=== PATIENT | male | born 1935 | race Caucasian/White ===

== ENCOUNTER 2022-05-03 17:25 | Inpatient (IN) ==
[2022-05-03 19:57] LABS: Hematocrit 30 % (42-52); Hemoglobin 10.4 g/dL (14.0-18.0); Mean Corpuscular HGB Conc 35 g/dL (31-36); Mean Corpuscular Hemoglobin 31 pg (27-31); Mean Corpuscular Volume 89 fL (80-94); Mean Platelet Volume 9.4 fL (7.4-10.4); Platelet Count 171 10^3/uL (150-450); Red Blood Count 3.35 10^6 /uL (4.18-5.48); Red Cell Distribution Width 19 % (10-15); White Blood Count 16.6 10^3/uL (3.5-10.8)
[2022-05-03 20:05] LABS: ABS Basophils 0.1 10^3/ul (0-0.2); ABS Lymphocytes 2.4 10^3/ul (1.0-4.8); ABS Monocytes 2.4 10^3/ul (0-0.8); ABS Neutrophils 11.7 10^3/ul (1.5-7.7); Eosinophil % 0.2 %; Lymphocyte % 14.3 %
[2022-05-03 20:34] LABS: Albumin 3.6 g/dL (3.2-5.2); Calcium 9.1 mg/dL (8.6-10.3); Potassium 4.2 mmol/L (3.5-5.0); Total Bilirubin 1.2 mg/dL (0.2-1.0)
[2022-05-03 20:41] LABS: Albumin/Globulin Ratio 1.4 (1-3); C Reactive Protein 53.05 mg/L (<8.01); Globulin 2.5 g/dL (2-4); Total Protein 6.1 g/dL (6.4-8.9); eGFR CKD-EPI 84.6 (>60)
[2022-05-03] MEDS ORDERED: Vancomycin 1,500 MG in NS 0.9% 250 ml 250 ML IVPB ONE (20:44)
[2022-05-03] MEDS ORDERED: Piperacillin/Tazobac ADVAN 3.375 GM in NS 0.9% 100 ml BAG 100 ML IV ONE (20:45)
[2022-05-03] MEDS ORDERED: Morphine 4 MG/ML VIAL (1 ml) IV ONE (20:52)
[2022-05-03] MEDS ORDERED: Polyethylene Glycol 3350 17 GM PACKET PO PRN (21:53)
[2022-05-03] MEDS ORDERED: Enoxaparin 40 MG/0.4 ML SYR SUBCUT SCH (23:00)
[2022-05-03] MEDS ORDERED: Vancomycin per Pharmacy 1 EA NOTE FOLLOW UP SCH (23:00)
[2022-05-04] MEDS: Enoxaparin 40 MG/0.4 ML SYR SUBCUT SCH ×2 (02:09→23:27)
[2022-05-04] MEDS: Ondansetron 4 mg VIAL 2 MG/ML 2 ml VIAL IV PRN (02:47)
[2022-05-04] MEDS ORDERED: Cefepime 1 GM in Dextrose 1 GM/50 ML BAG IV SCH (04:00)
[2022-05-04] MEDS: Cefepime 2 GM in Dextrose 2 GM/50 ML BAG IV SCH ×2 (05:38→17:16)
[2022-05-04 06:06] LABS: Hematocrit 27 % (42-52); Mean Corpuscular HGB Conc 34 g/dL (31-36); Mean Corpuscular Hemoglobin 30 pg (27-31); Mean Corpuscular Volume 89 fL (80-94); Mean Platelet Volume 9.4 fL (7.4-10.4); Platelet Count 146 10^3/uL (150-450); Red Cell Distribution Width 19 % (10-15); White Blood Count 15.5 10^3/uL (3.5-10.8)
[2022-05-04 06:18] LABS: ABS Basophils 0.1 10^3/ul (0-0.2); ABS Lymphocytes 1.6 10^3/ul (1.0-4.8); ABS Monocytes 2.3 10^3/ul (0-0.8); ABS Neutrophils 11.5 10^3/ul (1.5-7.7); Eosinophil % 0.2 %; Lymphocyte % 10.6 %
[2022-05-04 06:24] LABS: Albumin 3.2 g/dL (3.2-5.2); Albumin/Globulin Ratio 1.3 (1-3); C Reactive Protein 64.46 mg/L (<8.01); Calcium 8.5 mg/dL (8.6-10.3); Globulin 2.4 g/dL (2-4); Magnesium 1.8 mg/dL (1.9-2.7); Potassium 4.1 mmol/L (3.5-5.0); Total Bilirubin 1.3 mg/dL (0.2-1.0); Total Protein 5.6 g/dL (6.4-8.9); eGFR CKD-EPI 84.6 (>60)
[2022-05-04] MEDS: Aspirin EC 81 mg TAB.EC (enteric coated) PO SCH (08:05)
[2022-05-04] MEDS ORDERED: Magnesium Sulfate 2 gm BAG 2 GM/50 ML BAG IVPB ONE (08:22)
[2022-05-04] MEDS ORDERED: Vancomycin 1000 MG in NS 0.9% 250 ML IVPB SCH (10:30)
[2022-05-04] MEDS ORDERED: Gadoteridol (CONTRAST) 279.3 MG/ML 10 ML IV ONE (15:45)
[2022-05-05] MEDS ORDERED: Acetaminophen IV 1 GM/100ML 1,000 MG/100 ML BAG IV ONE (03:15)
[2022-05-05] MEDS: Cefepime 2 GM in Dextrose 2 GM/50 ML BAG IV SCH ×2 (05:07→15:50)
[2022-05-05 07:28] LABS: Hematocrit 26 % (42-52); Mean Corpuscular HGB Conc 35 g/dL (31-36); Mean Corpuscular Hemoglobin 31 pg (27-31); Mean Corpuscular Volume 88 fL (80-94); Mean Platelet Volume 9.3 fL (7.4-10.4); Platelet Count 151 10^3/uL (150-450); Red Blood Count 2.93 10^6 /uL (4.18-5.48); Red Cell Distribution Width 18 % (10-15); White Blood Count 11.3 10^3/uL (3.5-10.8)
[2022-05-05 07:32] LABS: ABS Basophils 0.1 10^3/ul (0-0.2); ABS Lymphocytes 1.3 10^3/ul (1.0-4.8); ABS Monocytes 1.7 10^3/ul (0-0.8); ABS Neutrophils 8.2 10^3/ul (1.5-7.7); Eosinophil % 0.3 %; Lymphocyte % 11.5 %
[2022-05-05 07:47] LABS: Calcium 8.5 mg/dL (8.6-10.3); Potassium 4.1 mmol/L (3.5-5.0); eGFR CKD-EPI 88.4 (>60)
[2022-05-05] MEDS: Aspirin EC 81 mg TAB.EC (enteric coated) PO SCH (08:30)
[2022-05-05] MEDS ORDERED: Vancomycin Trough Check NOTE FOLLOW UP ONE (10:00)
[2022-05-05 10:59] LABS: eGFR CKD-EPI 87.7 (>60)
[2022-05-05] MEDS: Ondansetron 4 mg VIAL 2 MG/ML 2 ml VIAL IV PRN (12:08)
[2022-05-05] MEDS: Enoxaparin 40 MG/0.4 ML SYR SUBCUT SCH (20:07)
[2022-05-06] MEDS: Cefepime 2 GM in Dextrose 2 GM/50 ML BAG IV SCH ×2 (03:38→16:18)
[2022-05-06 06:44] LABS: Hematocrit 28 % (42-52); Hemoglobin 9.2 g/dL (14.0-18.0); Mean Corpuscular HGB Conc 34 g/dL (31-36); Mean Corpuscular Hemoglobin 29 pg (27-31); Mean Corpuscular Volume 87 fL (80-94); Mean Platelet Volume 9.5 fL (7.4-10.4); Platelet Count 184 10^3/uL (150-450); Red Blood Count 3.15 10^6 /uL (4.18-5.48); Red Cell Distribution Width 18 % (10-15); White Blood Count 12.3 10^3/uL (3.5-10.8)
[2022-05-06 06:53] LABS: ABS Basophils 0.1 10^3/ul (0-0.2); ABS Monocytes 1.8 10^3/ul (0-0.8); ABS Neutrophils 8.4 10^3/ul (1.5-7.7); Eosinophil % 0.2 %; Lymphocyte % 16.5 %
[2022-05-06] MEDS: Aspirin EC 81 mg TAB.EC (enteric coated) PO SCH (09:11)
[2022-05-06] MEDS: Ondansetron 4 mg VIAL 2 MG/ML 2 ml VIAL IV PRN (11:05)
[2022-05-06] MEDS: Enoxaparin 40 MG/0.4 ML SYR SUBCUT SCH (20:56)
[2022-05-07] MEDS: Cefepime 2 GM in Dextrose 2 GM/50 ML BAG IV SCH ×2 (04:32→16:13)
[2022-05-07 04:56] LABS: Hematocrit 29 % (42-52); Hemoglobin 9.8 g/dL (14.0-18.0); Mean Corpuscular HGB Conc 34 g/dL (31-36); Mean Corpuscular Hemoglobin 29 pg (27-31); Mean Corpuscular Volume 86 fL (80-94); Mean Platelet Volume 8.6 fL (7.4-10.4); Platelet Count 204 10^3/uL (150-450); Red Blood Count 3.36 10^6 /uL (4.18-5.48); Red Cell Distribution Width 18 % (10-15); White Blood Count 11.3 10^3/uL (3.5-10.8)
[2022-05-07 05:12] LABS: ABS Basophils 0.1 10^3/ul (0-0.2); ABS Lymphocytes 2.2 10^3/ul (1.0-4.8); ABS Monocytes 1.8 10^3/ul (0-0.8); ABS Neutrophils 7.1 10^3/ul (1.5-7.7); Eosinophil % 0.4 %; Lymphocyte % 19.6 %
[2022-05-07 05:15] LABS: Calcium 8.7 mg/dL (8.6-10.3); Magnesium 1.7 mg/dL (1.9-2.7); Potassium 3.6 mmol/L (3.5-5.0); eGFR CKD-EPI 91.5 (>60)
[2022-05-07] MEDS ORDERED: Magnesium Sulfate 2 gm BAG 2 GM/50 ML BAG IVPB ONE (07:34)
[2022-05-07] MEDS: Aspirin EC 81 mg TAB.EC (enteric coated) PO SCH (09:13)
[2022-05-07] MEDS ORDERED: Ondansetron ODT 4 mg TAB 4 MG TAB SL ONE (11:38)
[2022-05-07] MEDS ORDERED: Lidocaine 4% GEL 10 GM TUBE TOPICAL ONE (15:10)
[2022-05-07] MEDS: Enoxaparin 40 MG/0.4 ML SYR SUBCUT SCH (19:45)
[2022-05-08] MEDS: Cefepime 2 GM in Dextrose 2 GM/50 ML BAG IV SCH ×2 (04:02→15:38)
[2022-05-08 06:32] LABS: Hematocrit 25 % (42-52); Hemoglobin 8.6 g/dL (14.0-18.0); Mean Corpuscular HGB Conc 34 g/dL (31-36); Mean Corpuscular Hemoglobin 29 pg (27-31); Mean Corpuscular Volume 86 fL (80-94); Mean Platelet Volume 8.9 fL (7.4-10.4); Platelet Count 213 10^3/uL (150-450); Red Blood Count 2.91 10^6 /uL (4.18-5.48); Red Cell Distribution Width 18 % (10-15); White Blood Count 15.4 10^3/uL (3.5-10.8)
[2022-05-08 06:55] LABS: Anisocytosis 1+
[2022-05-08 06:56] LABS: Acanthocytes 1+; Basophilic Stippling 1+; Burr Cells 1+; Polychromasia 1+
[2022-05-08 06:57] LABS: ABS Basophils 0.1 10^3/ul (0-0.2); ABS Lymphocytes 2.6 10^3/ul (1.0-4.8); ABS Monocytes 3.3 10^3/ul (0-0.8); ABS Neutrophils 9.4 10^3/ul (1.5-7.7); Eosinophil % 0.2 %; Lymphocyte % 16.9 %
[2022-05-08 07:08] LABS: Albumin/Globulin Ratio 1.4 (1-3); C Reactive Protein 11.45 mg/L (<8.01); Calcium 8.2 mg/dL (8.6-10.3); Globulin 2.2 g/dL (2-4); Potassium 3.7 mmol/L (3.5-5.0); Total Bilirubin 0.8 mg/dL (0.2-1.0); Total Protein 5.2 g/dL (6.4-8.9); eGFR CKD-EPI 89.2 (>60)
[2022-05-08] MEDS: Aspirin EC 81 mg TAB.EC (enteric coated) PO SCH (08:43)
[2022-05-08] MEDS ORDERED: Morphine 2 MG/ML SYRINGE IV ONE ×2 (11:23→22:31)
[2022-05-08] MEDS ORDERED: NS 0.9% 1000 ml BAG 1,000 ML IV SCH (17:45)
[2022-05-08 17:56] LABS: Hematocrit 26 % (42-52); Hemoglobin 8.6 g/dL (14.0-18.0)
[2022-05-08] MEDS: Pantoprazole VIAL 40 MG VIAL IV SCH ×2 (18:13→21:24)
[2022-05-09 00:49] LABS: Hematocrit 21 % (42-52); Hemoglobin 7.3 g/dL (14.0-18.0)
[2022-05-09] MEDS: Cefepime 2 GM in Dextrose 2 GM/50 ML BAG IV SCH ×2 (04:06→16:20)
[2022-05-09 05:33] LABS: Hematocrit 22 % (42-52); Hemoglobin 7.5 g/dL (14.0-18.0); Mean Corpuscular HGB Conc 34 g/dL (31-36); Mean Corpuscular Hemoglobin 30 pg (27-31); Mean Corpuscular Volume 87 fL (80-94); Mean Platelet Volume 9.6 fL (7.4-10.4); Platelet Count 195 10^3/uL (150-450); Red Cell Distribution Width 18 % (10-15); White Blood Count 14.7 10^3/uL (3.5-10.8)
[2022-05-09 06:26] LABS: Calcium 8.4 mg/dL (8.6-10.3); Potassium 3.6 mmol/L (3.5-5.0); eGFR CKD-EPI 84.9 (>60)
[2022-05-09] MEDS ORDERED: NS 0.9% 1000 ml BAG 1,000 ML IV SCH (07:30)
[2022-05-09] MEDS ORDERED: Morphine 2 MG/ML SYRINGE IV ONE ×2 (07:55→20:17)
[2022-05-09 08:44] LABS: Hematocrit 23 % (42-52); Hemoglobin 7.6 g/dL (14.0-18.0)
[2022-05-09 09:31] LABS: ABS Basophils 0.1 10^3/ul (0-0.2); ABS Eosinophils 0.1 10^3/ul (0-0.6); ABS Lymphocytes 2.4 10^3/ul (1.0-4.8); ABS Monocytes 2.6 10^3/ul (0-0.8); ABS Neutrophils 9.4 10^3/ul (1.5-7.7); Eosinophil % 0.5 %; Lymphocyte % 16.6 %
[2022-05-09] MEDS: Pantoprazole VIAL 40 MG VIAL IV SCH ×2 (11:17→22:41)
[2022-05-09 12:20] LABS: Hematocrit 23 % (42-52); Hemoglobin 7.5 g/dL (14.0-18.0)
[2022-05-09 16:49] LABS: Hematocrit 23 % (42-52); Hemoglobin 7.5 g/dL (14.0-18.0)
[2022-05-10] MEDS: Cefepime 2 GM in Dextrose 2 GM/50 ML BAG IV SCH (05:07)
[2022-05-10 06:04] LABS: ABS Basophils 0.1 10^3/ul (0-0.2); ABS Eosinophils 0.1 10^3/ul (0-0.6); ABS Lymphocytes 2.5 10^3/ul (1.0-4.8); ABS Monocytes 2.6 10^3/ul (0-0.8); ABS Neutrophils 9.3 10^3/ul (1.5-7.7); Eosinophil % 0.5 %; Hematocrit 21 % (42-52); Hemoglobin 7.1 g/dL (14.0-18.0); Lymphocyte % 17.1 %; Mean Corpuscular HGB Conc 34 g/dL (31-36); Mean Corpuscular Hemoglobin 30 pg (27-31); Mean Corpuscular Volume 88 fL (80-94); Mean Platelet Volume 8.5 fL (7.4-10.4); Platelet Count 177 10^3/uL (150-450); Red Blood Count 2.35 10^6 /uL (4.18-5.48); Red Cell Distribution Width 18 % (10-15); White Blood Count 14.6 10^3/uL (3.5-10.8)
[2022-05-10 06:33] LABS: Calcium 8.4 mg/dL (8.6-10.3); eGFR CKD-EPI 89.2 (>60)
[2022-05-10] MEDS: Pantoprazole VIAL 40 MG VIAL IV SCH ×3 (08:26→20:46)
[2022-05-10] MEDS ORDERED: Morphine 2 MG/ML SYRINGE IV ONE (12:03)
[2022-05-10 12:29] LABS: Hematocrit 24 % (42-52); Hemoglobin 7.9 g/dL (14.0-18.0)
[2022-05-10] MEDS: Ondansetron 4 mg VIAL 2 MG/ML 2 ml VIAL IV PRN (13:58)
[2022-05-10] MEDS ORDERED: Cefepime 2 GM in Dextrose 2 GM/50 ML BAG IV SCH (17:00)
[2022-05-10] MEDS ORDERED: Lactated Ringers 1000 ml BAG 1,000 ML IV SCH (20:00)
[2022-05-11 06:22] LABS: Calcium 7.6 mg/dL (8.6-10.3); Potassium 3.4 mmol/L (3.5-5.0); eGFR CKD-EPI 88.4 (>60)
[2022-05-11 06:26] LABS: Hematocrit 17 % (42-52); Hemoglobin 5.8 g/dL (14.0-18.0); Mean Corpuscular HGB Conc 33 g/dL (31-36); Mean Corpuscular Hemoglobin 29 pg (27-31); Mean Corpuscular Volume 88 fL (80-94); Mean Platelet Volume 9.6 fL (7.4-10.4); Platelet Count 171 10^3/uL (150-450); Red Blood Count 1.98 10^6 /uL (4.18-5.48); Red Cell Distribution Width 18 % (10-15)
[2022-05-11 07:18] LABS: Hematocrit 18 % (42-52); Hemoglobin 6.2 g/dL (14.0-18.0); Mean Corpuscular HGB Conc 35 g/dL (31-36); Mean Corpuscular Hemoglobin 31 pg (27-31); Mean Corpuscular Volume 88 fL (80-94); Mean Platelet Volume 8.6 fL (7.4-10.4); Platelet Count 151 10^3/uL (150-450); Red Blood Count 2.01 10^6 /uL (4.18-5.48); Red Cell Distribution Width 18 % (10-15); White Blood Count 12.6 10^3/uL (3.5-10.8)
[2022-05-11 07:45] LABS: Albumin 2.7 g/dL (3.2-5.2); Albumin/Globulin Ratio 1.4 (1-3); Direct Bilirubin 0.2 mg/dL (0.03-0.18); Globulin 1.9 g/dL (2-4); Indirect Bilirubin 0.6 mg/dL (0.3-1.0); Total Bilirubin 0.8 mg/dL (0.2-1.0); Total Protein 4.6 g/dL (6.4-8.9)
[2022-05-11 08:27] LABS: ABS Basophils 0.1 10^3/ul (0-0.2); ABS Eosinophils 0.1 10^3/ul (0-0.6); ABS Lymphocytes 2.2 10^3/ul (1.0-4.8); ABS Monocytes 2.5 10^3/ul (0-0.8); ABS Neutrophils 8.1 10^3/ul (1.5-7.7); Eosinophil % 0.7 %
[2022-05-11] MEDS: Pantoprazole VIAL 40 MG VIAL IV SCH ×2 (09:18→21:13)
[2022-05-11 16:23] LABS: Hematocrit 25 % (42-52); Hemoglobin 8.4 g/dL (14.0-18.0)
[2022-05-11] MEDS ORDERED: Midazolam 10 mg/10 ml VIAL 1 mg/ml 10 ml VIAL (10 mg) ONE ×2 (16:56→17:16)
[2022-05-11] MEDS ORDERED: fentaNYL 100 mcg/2 ml 50 MCG/ML VIAL ONE ×2 (16:56→17:16)
[2022-05-12 00:22] LABS: Hematocrit 25 % (42-52); Hemoglobin 8.2 g/dL (14.0-18.0)
[2022-05-12 06:21] LABS: Blood Urea Nitrogen 16 mg/dL (6-24); CO2 Carbon Dioxide 24 mmol/L (22-32); Calcium 7.7 mg/dL (8.6-10.3); Chloride 105 mmol/L (101-111); Glucose 106 mg/dL (70-100); Sodium 136 mmol/L (135-145); eGFR CKD-EPI 91.5 (>60)
[2022-05-12 06:47] LABS: Anion Gap 7 mmol/L (2-11)
[2022-05-12] MEDS: Pantoprazole VIAL 40 MG VIAL IV SCH ×2 (07:49→20:47)
[2022-05-12 08:34] LABS: Hematocrit 25 % (42-52); Hemoglobin 8.5 g/dL (14.0-18.0); Mean Corpuscular HGB Conc 34 g/dL (31-36); Mean Corpuscular Hemoglobin 30 pg (27-31); Mean Corpuscular Volume 89 fL (80-94); Mean Platelet Volume 9.7 fL (7.4-10.4); Platelet Count 156 10^3/uL (150-450); Red Blood Count 2.82 10^6 /uL (4.18-5.48); Red Cell Distribution Width 17 % (10-15); White Blood Count 10.6 10^3/uL (3.5-10.8)
[2022-05-12 09:22] LABS: ABS Basophils 0.1 10^3/ul (0-0.2); ABS Eosinophils 0.1 10^3/ul (0-0.6); ABS Lymphocytes 1.7 10^3/ul (1.0-4.8); ABS Neutrophils 6.7 10^3/ul (1.5-7.7); Eosinophil % 0.7 %; Lymphocyte % 16.2 %
[2022-05-12] MEDS: Morphine 2 MG/ML SYRINGE IV PRN (10:07)
[2022-05-13 07:48] LABS: Hematocrit 27 % (42-52); Mean Corpuscular HGB Conc 34 g/dL (31-36); Mean Corpuscular Hemoglobin 30 pg (27-31); Mean Corpuscular Volume 89 fL (80-94); Mean Platelet Volume 9.9 fL (7.4-10.4); Platelet Count 191 10^3/uL (150-450); Red Blood Count 2.99 10^6 /uL (4.18-5.48); Red Cell Distribution Width 17 % (10-15); White Blood Count 12.9 10^3/uL (3.5-10.8)
[2022-05-13 08:17] LABS: Calcium 8.2 mg/dL (8.6-10.3); Potassium 3.8 mmol/L (3.5-5.0); eGFR CKD-EPI 96.6 (>60)
[2022-05-13 08:25] LABS: ABS Basophils 0.1 10^3/ul (0-0.2); ABS Eosinophils 0.1 10^3/ul (0-0.6); ABS Lymphocytes 2.7 10^3/ul (1.0-4.8); ABS Monocytes 2.5 10^3/ul (0-0.8); ABS Neutrophils 7.5 10^3/ul (1.5-7.7); Eosinophil % 0.8 %; Lymphocyte % 20.9 %
[2022-05-13] MEDS: Pantoprazole VIAL 40 MG VIAL IV SCH ×2 (09:05→19:58)
[2022-05-13] MEDS: Morphine 2 MG/ML SYRINGE IV PRN (11:21)
[2022-05-14 06:25] LABS: Hematocrit 25 % (42-52); Hemoglobin 8.7 g/dL (14.0-18.0); Mean Corpuscular HGB Conc 34 g/dL (31-36); Mean Corpuscular Hemoglobin 31 pg (27-31); Mean Corpuscular Volume 89 fL (80-94); Mean Platelet Volume 10.2 fL (7.4-10.4); Platelet Count 182 10^3/uL (150-450); Red Blood Count 2.84 10^6 /uL (4.18-5.48); Red Cell Distribution Width 17 % (10-15); White Blood Count 9.3 10^3/uL (3.5-10.8)
[2022-05-14 06:45] LABS: ABS Basophils 0.1 10^3/ul (0-0.2); ABS Lymphocytes 1.9 10^3/ul (1.0-4.8); ABS Neutrophils 5.2 10^3/ul (1.5-7.7); Eosinophil % 0.5 %; Lymphocyte % 20.7 %
[2022-05-14 07:01] LABS: Calcium 8.2 mg/dL (8.6-10.3); Potassium 3.6 mmol/L (3.5-5.0); eGFR CKD-EPI 95.6 (>60)
[2022-05-14] MEDS: Pantoprazole VIAL 40 MG VIAL IV SCH ×2 (08:41→23:05)
[2022-05-15 05:26] LABS: Hematocrit 25 % (42-52); Hemoglobin 8.6 g/dL (14.0-18.0); Mean Corpuscular HGB Conc 35 g/dL (31-36); Mean Corpuscular Hemoglobin 31 pg (27-31); Mean Corpuscular Volume 89 fL (80-94); Mean Platelet Volume 9.9 fL (7.4-10.4); Platelet Count 181 10^3/uL (150-450); Red Blood Count 2.76 10^6 /uL (4.18-5.48); Red Cell Distribution Width 17 % (10-15); White Blood Count 7.5 10^3/uL (3.5-10.8)
[2022-05-15 05:42] LABS: Calcium 8.2 mg/dL (8.6-10.3); Potassium 3.7 mmol/L (3.5-5.0); eGFR CKD-EPI 93.2 (>60)
[2022-05-15 05:52] LABS: ABS Basophils 0.1 10^3/ul (0-0.2); ABS Eosinophils 0.1 10^3/ul (0-0.6); ABS Lymphocytes 2.2 10^3/ul (1.0-4.8); ABS Monocytes 1.5 10^3/ul (0-0.8); ABS Neutrophils 3.7 10^3/ul (1.5-7.7); Eosinophil % 0.8 %; Lymphocyte % 29.4 %; Nucleated Red Blood Cells % 0.1
[2022-05-15] MEDS: Pantoprazole VIAL 40 MG VIAL IV SCH (09:29)
[2022-05-15] MEDS ORDERED: Senna TAB 8.6 mg TAB PO ONE (11:03)
[2022-05-15 11:17] LABS: Rapid COVID-19 Molecular Undetected (Undetected)
[2022-05-15 11:38] VITALS: BP 150/56
[2022-05-15] MEDS: Morphine 2 MG/ML SYRINGE IV PRN (12:31)
== END 2022-05-15 14:45 | DRG 602 ==
LOC: ED 17:25 → SUATTDRO 21:49 → EDHOLD 21:49 → MED 05-04 00:40
PROVIDERS: ADMIT Student in an Organized Health Care Education/Training Program; ATTEND Hospitalist